=== PATIENT | female | born 1965 | race Caucasian/White ===

== ENCOUNTER → 2016-03-29 10:57 | Outpatient (CLI) | payer MEDICARE, MEDICAID ==
[2015-01-13 13:35] VITALS: BMI 35.5
[~2016-03-29 10:57] MED LIST: ADVAIR 100/501 DISK INH; AMBIEN10 MG PO; CLARINEX5 MG PO; CYMBALTA60 MG PO; FLAGYL500 MG PO; GLIMEPIRIDE4 MG PO; GLUCOPHAGE1000 MG PO; LEVAQUIN500 MG PO; LIPITOR20 MG PO; LISINOPRIL10 MG PO; MACRODANTIN100 MG PO; METOPROLOL TAR100 M1 PO; MIRALAX17 GM PO; NEURONTIN600 MG PO; PERCOCET 10/3251 TA1 PO; PHENERGAN25 M1 PO; PRILOSEC20 MG PO; PROAIR HFA8.5 GM INH; PROTONIX20 MG PO; REQUIP XL2 MG PO; SEROQUEL XR300 MG PO; SINGULAIR10 MG PO; VICTOZA0.6 MG/0.1 SQ; ZANAFLEX4 MG PO; ZOFRAN4 MG PO
== END | disposition home or self-care (01) ==
LOC: D.LAB 10:57
DX: R19.7 Diarrhea, unspecified (principal); R10.9 Unspecified abdominal pain

== ENCOUNTER 2016-11-06 23:40 | Emergency (ER) | payer MEDICARE ==
[2015-01-13 13:35] VITALS: BMI 35.5
[2016-11-06 23:51] LABS: APPEARANCE CLEAR (CLEAR); BILIRUBIN NEGATIVE (NEGATIVE); COLOR YELLOW (YELLOW); GLUCOSE 1000 mg/dL (NEGATIVE); KETONE NEGATIVE (NEGATIVE); LEUKOCYTE ESTERASE NEGATIVE (NEGATIVE); NITRITE NEGATIVE (NEGATIVE); PROTEIN NEGATIVE (NEGATIVE); UROBILINOGEN NORMAL (NORMAL)
[2016-11-07 00:02] LABS: BASOPHILS 0.2 % (0-2); EOSINOPHILS 1.1 % (0-7); HEMATOCRIT 38.6 % (36.0-48.0); HEMOGLOBIN 13.2 g/dL (12-16); IMMATURE GRANULOCYTES 0.2 % (0-5); MCH 28.6 pg (26.0-34.0); MCHC 34.2 g/dL (31.0-37.0); MCV 83.7 fL (80.0-100.0); MEAN PLATELET VOLUME 11.7 fL (7.4-10.4); MONOCYTES 8.2 % (2-11); NEUTROPHILS 55.3 % (40-80); PLATELET COUNT 166 10x3/uL (130-400); RBC 4.61 10x6/uL (4.00-5.40); RDW 12.9 % (11.5-14.5); WBC 11.1 10x3/uL (4.8-10.8)
[2016-11-07 00:18] LABS: ALBUMIN 3.3 g/dL (3.4-5.0); ALKALINE PHOSPHATASE 102 U/L (46-116); ALT (SGPT) 23 U/L (10-68); BILIRUBIN - TOTAL 0.28 mg/dL (0.2-1.3); CALC OSMOLALITY 282 mosm/kg (275-300); CALCIUM 9.3 mg/dL (8.5-10.1); CARBON DIOXIDE 26.7 mmol/L (21.0-32.0); CHLORIDE - SERUM 97 mmol/L (98-107); CREATININE - SERUM 0.8 mg/dL (0.6-1.3); POTASSIUM - SERUM 3.8 mmol/L (3.5-5.1); PROTEIN - SERUM 7.4 g/dL (6.4-8.2); SODIUM 132 mmol/L (136-145); UREA NITROGEN 12 mg/dL (7-18); eGFR NON AFRICAN AMERICAN 81 mL/min (90-120)
[2016-11-07 00:21] LABS: GLUCOSE 419 mg/dL (74-106)
[2016-11-07 00:33] LABS: KETONE - SERUM NEGATIVE (NEGATIVE)
[2016-11-07 00:45] LABS: AMYLASE - SERUM 21 U/L (25-115); LIPASE 100 U/L (73-393)
[2016-11-07 00:47] LABS: TROPONIN-I < 0.017 ng/mL (0.000-0.060)
== END 2016-11-07 02:35 | disposition home or self-care (01) ==
LOC: D.ER 23:40
PROVIDERS: Family Medicine
DX: K57.92 Diverticulitis of intestine, part unspecified, without perforation or abscess without bleeding (principal); E11.9 Type 2 diabetes mellitus without complications; Z79.4 Long term (current) use of insulin; I10 Essential (primary) hypertension

== ENCOUNTER 2017-09-09 02:38 | Inpatient (IN) | payer MEDICARE, MEDICAID ==
[~2017-09-09] VITALS: Ht 149.9 cm; Wt 84.4 kg
[2017-09-09] MEDS ORDERED: REGLAN5 MG (02:47)
[2017-09-09] MEDS ORDERED: APIDRA100 U/M1 SQ (02:48)
[2017-09-09] MEDS ORDERED: LANTUS INSULIN10 ML SC (02:50)
[2017-09-09 03:23] LABS: BASOPHILS 0.1 % (0-2); EOSINOPHILS 0.1 % (0-7); HEMATOCRIT 36.5 % (36.0-48.0); HEMOGLOBIN 12.5 g/dL (12-16); IMMATURE GRANULOCYTES 1.3 % (0-5); LYMPHOCYTES 23.4 % (15-50); MCH 28.7 pg (26.0-34.0); MCHC 34.2 g/dL (31.0-37.0); MCV 83.7 fL (80.0-100.0); MEAN PLATELET VOLUME 11.5 fL (7.4-10.4); MONOCYTES 5.7 % (2-11); NEUTROPHILS 69.4 % (40-80); RBC 4.36 10x6/uL (4.00-5.40); RDW 13.1 % (11.5-14.5); WBC 19.1 10x3/uL (4.8-10.8)
[2017-09-09 03:24] LABS: PLATELET COUNT 239 10x3/uL (130-400)
[2017-09-09 03:43] LABS: ALBUMIN 3.1 g/dL (3.4-5.0); ALKALINE PHOSPHATASE 64 U/L (46-116); ALT (SGPT) 16 U/L (10-68); BILIRUBIN - TOTAL 0.15 mg/dL (0.2-1.3); CALC OSMOLALITY 283 mosm/kg (275-300); CALCIUM 8.7 mg/dL (8.5-10.1); CARBON DIOXIDE 29.5 mmol/L (21.0-32.0); CHLORIDE - SERUM 99 mmol/L (98-107); CREATININE - SERUM 0.7 mg/dL (0.6-1.3); MAGNESIUM - SERUM 1.5 mg/dL (1.8-2.4); POTASSIUM - SERUM 4.6 mmol/L (3.5-5.1); PROTEIN - SERUM 6.1 g/dL (6.4-8.2); SODIUM 136 mmol/L (136-145); UREA NITROGEN 15 mg/dL (7-18); eGFR NON AFRICAN AMERICAN > 90 mL/min (90-120)
[2017-09-09 03:44] LABS: GLUCOSE 301 mg/dL (74-106)
[2017-09-09 07:57] LABS: HEMATOCRIT 37.2 % (36.0-48.0); HEMOGLOBIN 12.6 g/dL (12-16); MCH 28.5 pg (26.0-34.0); MCHC 33.9 g/dL (31.0-37.0); MCV 84.2 fL (80.0-100.0); MEAN PLATELET VOLUME 11.6 fL (7.4-10.4); PLATELET COUNT 213 10x3/uL (130-400); RBC 4.42 10x6/uL (4.00-5.40); RDW 13.3 % (11.5-14.5); WBC 22.3 10x3/uL (4.8-10.8)
[2017-09-09 08:28] VITALS: BP 131/74; BMI 37.6
[2017-09-09 08:44] LABS: LYMPHOCYTES 31 % (15-50); MONOCYTES 9 % (2-11); NEUTROPHILS 55 % (40-80); PLATELET ESTIMATE NORMAL; PLATELET MORPHOLOGY NORMAL PLT MORPH
[2017-09-09 08:45] LABS: HYPOCHROMASIA 1+; SMUDGE CELLS OCC
[2017-09-09 10:40] VITALS: Ht 149.9 cm; Wt 84.4 kg
[2017-09-09 12:47] VITALS: BP 136/79
[2017-09-09 15:05] LABS: APPEARANCE CLEAR (CLEAR); BILIRUBIN NEGATIVE (NEGATIVE); COLOR YELLOW (YELLOW); GLUCOSE 100 mg/dL (NEGATIVE); KETONE NEGATIVE (NEGATIVE); NITRITE NEGATIVE (NEGATIVE); PROTEIN NEGATIVE (NEGATIVE); UROBILINOGEN NORMAL (NORMAL)
[2017-09-09 15:58] VITALS: BP 144/77
[2017-09-09 20:02] VITALS: BP 149/66
[2017-09-10 05:00] VITALS: BP 123/69
[2017-09-10 06:40] LABS: BASOPHILS 0.1 % (0-2); EOSINOPHILS 0.2 % (0-7); HEMATOCRIT 35.3 % (36.0-48.0); HEMOGLOBIN 11.8 g/dL (12-16); IMMATURE GRANULOCYTES 1.1 % (0-5); LYMPHOCYTES 26.4 % (15-50); MCHC 33.4 g/dL (31.0-37.0); MCV 83.8 fL (80.0-100.0); MEAN PLATELET VOLUME 11.4 fL (7.4-10.4); MONOCYTES 8.3 % (2-11); NEUTROPHILS 63.9 % (40-80); PLATELET COUNT 211 10x3/uL (130-400); RBC 4.21 10x6/uL (4.00-5.40); RDW 13.4 % (11.5-14.5); WBC 17.6 10x3/uL (4.8-10.8)
[2017-09-10 07:45] LABS: ALKALINE PHOSPHATASE 52 U/L (46-116); ALT (SGPT) 18 U/L (10-68); BILIRUBIN - TOTAL 0.19 mg/dL (0.2-1.3); CALCIUM 8.7 mg/dL (8.5-10.1); CARBON DIOXIDE 28.9 mmol/L (21.0-32.0); CHLORIDE - SERUM 101 mmol/L (98-107); CREATININE - SERUM 0.7 mg/dL (0.6-1.3); GLUCOSE 289 mg/dL (74-106); POTASSIUM - SERUM 4.5 mmol/L (3.5-5.1); PROTEIN - SERUM 5.9 g/dL (6.4-8.2); SODIUM 133 mmol/L (136-145); eGFR NON AFRICAN AMERICAN > 90 mL/min (90-120)
[2017-09-10 07:56] LABS: CALC OSMOLALITY 275 mosm/kg (275-300); UREA NITROGEN 10 mg/dL (7-18)
[2017-09-10 08:49] VITALS: BP 113/83
[2017-09-10 16:57] VITALS: BP 149/87
[2017-09-10 20:30] VITALS: BP 151/77
[2017-09-11 04:30] VITALS: BP 113/63
[2017-09-11 05:01] LABS: BASOPHILS 0.1 % (0-2); EOSINOPHILS 0.1 % (0-7); HEMATOCRIT 33.9 % (36.0-48.0); HEMOGLOBIN 11.2 g/dL (12-16); IMMATURE GRANULOCYTES 0.8 % (0-5); LYMPHOCYTES 16.3 % (15-50); MCH 27.9 pg (26.0-34.0); MCV 84.3 fL (80.0-100.0); MEAN PLATELET VOLUME 11.6 fL (7.4-10.4); MONOCYTES 4.1 % (2-11); NEUTROPHILS 78.6 % (40-80); PLATELET COUNT 207 10x3/uL (130-400); RBC 4.02 10x6/uL (4.00-5.40); RDW 13.4 % (11.5-14.5); WBC 14.5 10x3/uL (4.8-10.8)
[2017-09-11 05:27] LABS: ALBUMIN 3.3 g/dL (3.4-5.0); ALKALINE PHOSPHATASE 53 U/L (46-116); ALT (SGPT) 20 U/L (10-68); BILIRUBIN - TOTAL 0.19 mg/dL (0.2-1.3); CALC OSMOLALITY 282 mosm/kg (275-300); CALCIUM 8.8 mg/dL (8.5-10.1); CARBON DIOXIDE 25.8 mmol/L (21.0-32.0); CHLORIDE - SERUM 99 mmol/L (98-107); CREATININE - SERUM 0.8 mg/dL (0.6-1.3); POTASSIUM - SERUM 4.3 mmol/L (3.5-5.1); PROTEIN - SERUM 5.9 g/dL (6.4-8.2); SODIUM 135 mmol/L (136-145); UREA NITROGEN 11 mg/dL (7-18); eGFR NON AFRICAN AMERICAN 80 mL/min (90-120)
[2017-09-11 05:30] LABS: GLUCOSE 346 mg/dL (74-106)
[2017-09-11 09:10] VITALS: BP 120/78
[2017-09-11 14:32] VITALS: BP 132/75
[2017-09-11 17:00] VITALS: BP 118/70
[2017-09-11 21:58] VITALS: BP 112/69
[2017-09-12 05:48] LABS: BASOPHILS 0.1 % (0-2); EOSINOPHILS 0.8 % (0-7); HEMATOCRIT 30.2 % (36.0-48.0); HEMOGLOBIN 10.1 g/dL (12-16); IMMATURE GRANULOCYTES 0.7 % (0-5); LYMPHOCYTES 32.9 % (15-50); MCH 27.9 pg (26.0-34.0); MCHC 33.4 g/dL (31.0-37.0); MCV 83.4 fL (80.0-100.0); MEAN PLATELET VOLUME 11.7 fL (7.4-10.4); MONOCYTES 7.2 % (2-11); NEUTROPHILS 58.3 % (40-80); PLATELET COUNT 206 10x3/uL (130-400); RBC 3.62 10x6/uL (4.00-5.40); RDW 13.6 % (11.5-14.5); WBC 12.6 10x3/uL (4.8-10.8)
[2017-09-12 06:27] LABS: ALBUMIN 2.7 g/dL (3.4-5.0); ALKALINE PHOSPHATASE 54 U/L (46-116); ALT (SGPT) 19 U/L (10-68); BILIRUBIN - TOTAL 0.18 mg/dL (0.2-1.3); CALC OSMOLALITY 284 mosm/kg (275-300); CALCIUM 8.5 mg/dL (8.5-10.1); CARBON DIOXIDE 30.3 mmol/L (21.0-32.0); CHLORIDE - SERUM 102 mmol/L (98-107); CREATININE - SERUM 0.6 mg/dL (0.6-1.3); GLUCOSE 322 mg/dL (74-106); POTASSIUM - SERUM 3.9 mmol/L (3.5-5.1); PROTEIN - SERUM 5.2 g/dL (6.4-8.2); SODIUM 136 mmol/L (136-145); UREA NITROGEN 16 mg/dL (7-18); eGFR NON AFRICAN AMERICAN > 90 mL/min (90-120)
[2017-09-12 06:35] VITALS: BP 127/64
[2017-09-12 09:12] VITALS: BP 167/102
[2017-09-12] MEDS ORDERED: GAS-X80 MG PO (10:56)
[2017-09-12] MEDS ORDERED: COLACE100 MG PO (10:56)
[2017-09-12] MEDS ORDERED: FLAGYL500 MG PO (10:56)
[2017-09-12] MEDS ORDERED: LEVAQUIN750 MG PO (10:57)
== END 2017-09-12 13:02 | disposition home or self-care (01) | DRG 379 ==
LOC: D.ER 02:38 → D.MS 04:26 → D.EDHOLD 04:26 → D.MS 05:21
PROVIDERS: Emergency Medicine; Family Medicine
DX: K57.33 Diverticulitis of large intestine without perforation or abscess with bleeding (principal); I10 Essential (primary) hypertension; D64.9 Anemia, unspecified; E83.42 Hypomagnesemia; E10.65 Type 1 diabetes mellitus with hyperglycemia; Z79.4 Long term (current) use of insulin; R79.89 Other specified abnormal findings of blood chemistry; K02.9 Dental caries, unspecified; F17.210 Nicotine dependence, cigarettes, uncomplicated

== ENCOUNTER 2017-09-13 18:55 | Inpatient (IN) | payer MEDICARE, MEDICAID ==
[~2017-09-13] VITALS: Ht 149.9 cm; Wt 84.5 kg
--- NOTE | ~2017-09-13 | MORECARE ---
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 [address] [place] [address] END OF REPORT
[~2017-09-13 18:55] MED LIST changes: +APIDRA100 U/M1 SQ; +COLACE100 MG PO; +GAS-X80 MG PO; +LANTUS INSULIN10 ML SC; +LEVAQUIN750 MG PO; +REGLAN5 MG
[2017-09-13 19:23] LABS: APPEARANCE CLEAR (CLEAR); BILIRUBIN NEGATIVE (NEGATIVE); COLOR YELLOW (YELLOW); GLUCOSE 1000 mg/dL (NEGATIVE); KETONE NEGATIVE (NEGATIVE); NITRITE NEGATIVE (NEGATIVE); PROTEIN NEGATIVE (NEGATIVE); SPECIFIC GRAVITY 1.015 (1.005-1.020); UROBILINOGEN NORMAL (NORMAL)
[2017-09-13 19:24] LABS: EPITHELIAL CELLS 0-5 /hpf (0-5); WHITE CELLS - URINE 0-5 /hpf (0-5)
[2017-09-13 19:25] LABS: BACTERIA FEW /hpf (NONE SEEN)
[2017-09-13 19:41] LABS: BASOPHILS 0.1 % (0-2); EOSINOPHILS 0.5 % (0-7); HEMATOCRIT 29.5 % (36.0-48.0); HEMOGLOBIN 9.8 g/dL (12-16); IMMATURE GRANULOCYTES 0.7 % (0-5); LYMPHOCYTES 31.6 % (15-50); MCH 28.2 pg (26.0-34.0); MCHC 33.2 g/dL (31.0-37.0); MCV 84.8 fL (80.0-100.0); MEAN PLATELET VOLUME 11.4 fL (7.4-10.4); MONOCYTES 8.5 % (2-11); NEUTROPHILS 58.6 % (40-80); PLATELET COUNT 216 10x3/uL (130-400); RBC 3.48 10x6/uL (4.00-5.40); RDW 14.4 % (11.5-14.5)
[2017-09-13 19:56] LABS: WBC 19.3 10x3/uL (4.8-10.8)
[2017-09-13 19:59] LABS: APTT 27.2 SECONDS (22.8-39.4); INR 0.92 (0.85-1.17)
[2017-09-13 20:11] LABS: ALKALINE PHOSPHATASE 64 U/L (46-116); ALT (SGPT) 16 U/L (10-68); AMYLASE - SERUM 34 U/L (25-115); BILIRUBIN - TOTAL 0.19 mg/dL (0.2-1.3); CALCIUM 8.4 mg/dL (8.5-10.1); CHLORIDE - SERUM 101 mmol/L (98-107); LIPASE 161 U/L (73-393); POTASSIUM - SERUM 3.8 mmol/L (3.5-5.1); PROTEIN - SERUM 5.6 g/dL (6.4-8.2); SODIUM 135 mmol/L (136-145); UREA NITROGEN 14 mg/dL (7-18); eGFR NON AFRICAN AMERICAN 80 mL/min (90-120)
[2017-09-13 20:16] LABS: CALC OSMOLALITY 278 mosm/kg (275-300); CREATININE - SERUM 0.8 mg/dL (0.6-1.3); GLUCOSE 248 mg/dL (74-106)
[2017-09-13 21:08] VITALS: BP 144/70
[2017-09-13 22:00] VITALS: BP 127/68
[2017-09-13 22:57] VITALS: BP 137/76
[2017-09-13 23:48] LABS: HEMATOCRIT 29.8 % (36.0-48.0)
[2017-09-14] VITALS (12 sets, daily range): BP systolic 125–165; BP diastolic 69–95; Ht 149.9 cm; Wt 84.5 kg
[2017-09-14 05:47] LABS: BASOPHILS 0.1 % (0-2); EOSINOPHILS 1.7 % (0-7); HEMATOCRIT 29.9 % (36.0-48.0); HEMOGLOBIN 9.7 g/dL (12-16); IMMATURE GRANULOCYTES 0.8 % (0-5); LYMPHOCYTES 49.2 % (15-50); MCH 27.6 pg (26.0-34.0); MCHC 32.4 g/dL (31.0-37.0); MCV 85.2 fL (80.0-100.0); MEAN PLATELET VOLUME 11.3 fL (7.4-10.4); MONOCYTES 7.9 % (2-11); NEUTROPHILS 40.3 % (40-80); PLATELET COUNT 211 10x3/uL (130-400); RBC 3.51 10x6/uL (4.00-5.40); RDW 14.6 % (11.5-14.5); WBC 15.5 10x3/uL (4.8-10.8)
[2017-09-14 06:32] LABS: ALBUMIN 2.8 g/dL (3.4-5.0); ALKALINE PHOSPHATASE 40 U/L (46-116); BILIRUBIN - TOTAL 0.22 mg/dL (0.2-1.3); CALCIUM 8.1 mg/dL (8.5-10.1); CARBON DIOXIDE 30.4 mmol/L (21.0-32.0); CHLORIDE - SERUM 103 mmol/L (98-107); CREATININE - SERUM 0.8 mg/dL (0.6-1.3); PROTEIN - SERUM 5.1 g/dL (6.4-8.2); SODIUM 140 mmol/L (136-145); eGFR NON AFRICAN AMERICAN 80 mL/min (90-120)
[2017-09-14 06:33] LABS: ALT (SGPT) 23 U/L (10-68); CALC OSMOLALITY 280 mosm/kg (275-300); GLUCOSE 101 mg/dL (74-106); UREA NITROGEN 19 mg/dL (7-18)
[2017-09-14 15:24] LABS: HEMATOCRIT 29.7 % (36.0-48.0); HEMOGLOBIN 9.8 g/dL (12-16)
[2017-09-15 00:22] VITALS: BP 154/80
[2017-09-15 04:59] LABS: BASOPHILS 0.1 % (0-2); HEMATOCRIT 31.9 % (36.0-48.0); HEMOGLOBIN 10.2 g/dL (12-16); IMMATURE GRANULOCYTES 0.8 % (0-5); LYMPHOCYTES 46.6 % (15-50); MCH 27.8 pg (26.0-34.0); MCV 86.9 fL (80.0-100.0); MEAN PLATELET VOLUME 10.9 fL (7.4-10.4); MONOCYTES 8.3 % (2-11); NEUTROPHILS 41.2 % (40-80); PLATELET COUNT 216 10x3/uL (130-400); RBC 3.67 10x6/uL (4.00-5.40); RDW 14.8 % (11.5-14.5)
[2017-09-15 05:07] LABS: WBC 9.6 10x3/uL (4.8-10.8)
[2017-09-15 05:10] LABS: CALCIUM 7.6 mg/dL (8.5-10.1); CHLORIDE - SERUM 104 mmol/L (98-107); CREATININE - SERUM 0.7 mg/dL (0.6-1.3); POTASSIUM - SERUM 3.9 mmol/L (3.5-5.1); SODIUM 138 mmol/L (136-145); eGFR NON AFRICAN AMERICAN > 90 mL/min (90-120)
[2017-09-15 05:12] LABS: CALC OSMOLALITY 283 mosm/kg (275-300); GLUCOSE 263 mg/dL (74-106); UREA NITROGEN 10 mg/dL (7-18)
[2017-09-15 06:13] VITALS: BP 114/57
[2017-09-15 08:34] VITALS: BP 129/80
[2017-09-15 12:40] VITALS: BP 131/67
[2017-09-15 16:51] VITALS: BP 156/78
[2017-09-15 20:52] VITALS: BP 151/68
[2017-09-16 00:30] VITALS: BP 151/72
[2017-09-16 04:45] LABS: BASOPHILS 0.1 % (0-2); EOSINOPHILS 2.6 % (0-7); HEMATOCRIT 32.8 % (36.0-48.0); HEMOGLOBIN 10.6 g/dL (12-16); IMMATURE GRANULOCYTES 0.8 % (0-5); LYMPHOCYTES 41.8 % (15-50); MCHC 32.3 g/dL (31.0-37.0); MCV 86.8 fL (80.0-100.0); MEAN PLATELET VOLUME 11.1 fL (7.4-10.4); MONOCYTES 9.6 % (2-11); NEUTROPHILS 45.1 % (40-80); PLATELET COUNT 214 10x3/uL (130-400); RBC 3.78 10x6/uL (4.00-5.40); RDW 14.7 % (11.5-14.5); WBC 8.8 10x3/uL (4.8-10.8)
[2017-09-16 05:00] LABS: CALC OSMOLALITY 283 mosm/kg (275-300); CALCIUM 7.9 mg/dL (8.5-10.1); CARBON DIOXIDE 30.4 mmol/L (21.0-32.0); CHLORIDE - SERUM 103 mmol/L (98-107); CREATININE - SERUM 0.7 mg/dL (0.6-1.3); GLUCOSE 254 mg/dL (74-106); POTASSIUM - SERUM 4.1 mmol/L (3.5-5.1); SODIUM 138 mmol/L (136-145); UREA NITROGEN 10 mg/dL (7-18); eGFR NON AFRICAN AMERICAN > 90 mL/min (90-120)
[2017-09-16 06:17] VITALS: BP 129/62
[2017-09-16 08:42] VITALS: BP 152/84
[2017-09-16 12:53] VITALS: BP 127/81
== END 2017-09-16 13:55 | disposition home or self-care (01) | DRG 378 ==
LOC: D.ER 18:55 → D.MS 23:23 → D.EDHOLD 23:23 → D.MS 09-14 11:58
PROVIDERS: Family Medicine; Internal Medicine Nephrology
DX: K57.33 Diverticulitis of large intestine without perforation or abscess with bleeding (principal); F17.203 Nicotine dependence unspecified, with withdrawal; D50.0 Iron deficiency anemia secondary to blood loss (chronic); E10.65 Type 1 diabetes mellitus with hyperglycemia; Z79.4 Long term (current) use of insulin; I10 Essential (primary) hypertension; K59.00 Constipation, unspecified

== ENCOUNTER → 2017-11-16 16:56 | Outpatient (CLI) | payer MEDICARE, MEDICAID ==
[2017-09-14 18:58] VITALS: BMI 37.6
== END | disposition home or self-care (01) ==
LOC: D.MAMMO 15:30
DX: Z12.31 Encounter for screening mammogram for malignant neoplasm of breast (principal)

== ENCOUNTER 2018-12-02 08:00 | Outpatient (CLI) | payer MEDICARE, MEDICAID ==
[2018-12-16 09:38] VITALS: BMI 37.6
== END 2018-12-02 08:01 | disposition home or self-care (01) ==
LOC: D.MAMMO 08:00
PROVIDERS: ATTEND Family Medicine
DX: Z12.31 Encounter for screening mammogram for malignant neoplasm of breast (principal)

== ENCOUNTER 2018-12-16 09:37 | Emergency (ER) | payer MEDICARE, MEDICAID ==
[~2018-12-16] VITALS: Ht 149.9 cm; Wt 84.5 kg
[2018-12-16 09:38] VITALS: Ht 149.9 cm; Wt 84.5 kg
[2018-12-16] MEDS ORDERED: RANITIDINE HCL150 M1 PO (09:42)
[2018-12-16] MEDS ORDERED: ABILIFY20 MG PO (09:42)
[2018-12-16] MEDS ORDERED: HYDROCODON-ACE1 EA10 PO (09:43)
[2018-12-16] MEDS ORDERED: CYCLOBENZAPRINE10 MG PO (10:48)
[2018-12-16] MEDS ORDERED: MEDROL DOSE PACK4 MG PO (10:48)
[2018-12-16 11:34] VITALS: BP 152/86
== END 2018-12-16 11:36 | disposition home or self-care (01) ==
LOC: D.ER 09:37
DX: M54.30 Sciatica, unspecified side (principal)

== ENCOUNTER 2019-02-22 05:08 | Day surgery (SDC) | payer MEDICARE, MEDICAID ==
[~2019-02-22] VITALS: Ht 149.9 cm; Wt 81.6 kg
--- NOTE | ~2019-02-22 | OP ---
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 POSTOPERATIVE DIAGNOSIS: Disc herniation L4-L5 with right L5 radiculitis/radiculopathy. PROCEDURES: Lumbar laminotomy, medial facetectomy, and foraminotomy at L4-L5 on the right with METRx retractor and discectomy L4-L5, right. SURGEON: Dr. Ko Neri DESCRIPTION OF THE TECHNIQUE: After induction of general endotracheal anesthesia, the patient was rolled prone on the [employer] frame. Lumbar spine was prepped and draped in the usual sterile fashion. Fluoroscopic x-ray and spinal needle localized at the L4-L5 interspace on the right side. The level was confirmed with fluoroscopic x-ray. After infiltration of 1 1:100,000 epinephrine and 1% lidocaine, a stab incision was created with a #11 blade and a series of dilators were used to advance a METRx retractor to the L4-L5 interspace on the right side. Level was confirmed with fluoroscopic x-ray. A microscope and Midas Blake drill were used to perform laminotomy, medial facetectomy and foraminotomy at L4-L5 on the right. Hypertrophied ligamentum flavum was removed with Cloward rongeurs. Following this, the L4 and L5 nerve roots were decompressed posteriorly. There was a disc protrusion within the axilla of the right L5 nerve root. This was removed with pituitary rongeurs and a #11 blade. Additional material was removed from the posterior one-third of the disc space. Following this, the L5 nerve root was completely decompressed. Meticulous hemostasis was maintained throughout the wound. Wound was irrigated with copious amounts of Ancef irrigant solution. The retractor was removed. The fascia was closed with 3-0 Vicryl suture, the subdermal layer was closed with 3-0 Vicryl suture. Skin was closed with sayda. A sterile dressing was applied to the wound. The patient was awakened in good condition and taken to the recovery. All counts were reported as correct. Estimated blood loss was minimal. TRANSINT:[id number] Voice Confirmation ID: [id number] DOCUMENT ID: [id number] KO NERI MD CC: [id number] DICTATION DATE: 03/15/19 1002 SANDING MACHINE TENDER: 03/15/19 1031 [facility] [place] 02/22/19 [place] [id number]
[~2019-02-22 05:08] MED LIST changes: +ABILIFY20 MG PO; +ATIVAN1 MG PO; +CYCLOBENZAPRINE10 MG PO; +HYDROCODON-ACE1 EA10 PO; +MEDROL DOSE PACK4 MG PO; +RANITIDINE HCL150 M1 PO; -REGLAN5 MG; +REGLAN5 MG PO
[2019-02-22 05:37] LABS: HEMOGLOBIN 15.4 g/dL (12-16); MCH 29.3 pg (26.0-34.0); MCHC 34.2 g/dL (31.0-37.0); MCV 85.6 fL (80.0-100.0); MEAN PLATELET VOLUME 11.6 fL (7.4-10.4); RBC 5.26 10x6/uL (4.00-5.40); RDW 13.8 % (11.5-14.5); WBC 9.7 10x3/uL (4.8-10.8)
[2019-02-22 05:56] LABS: CALC OSMOLALITY 286 mosm/kg (275-300); CALCIUM 9.5 mg/dL (8.5-10.1); CARBON DIOXIDE 28.1 mmol/L (21.0-32.0); CHLORIDE - SERUM 99 mmol/L (98-107); CREATININE - SERUM 0.7 mg/dL (0.6-1.3); POTASSIUM - SERUM 4.6 mmol/L (3.5-5.1); SODIUM 136 mmol/L (136-145); UREA NITROGEN 13 mg/dL (7-18); eGFR NON AFRICAN AMERICAN > 90 mL/min (90-120)
[2019-02-22 05:58] LABS: GLUCOSE 366 mg/dL (74-106)
[2019-02-22 06:52] VITALS: BP 148/80; Ht 149.9 cm; Wt 81.6 kg
--- NOTE | 2019-02-22 08:44 | NUR ---
0630-DR. AHUMADA NOTIFIED VIA PHONE OF PRE-OP BLOOD SUGAR, NEED FOR ANTIBIOTIC CHOICE MADE AND PATIENT WITH PERSONAL CRISIS WITH OF SON 3 WEEKS AGO.
[2019-02-22] MEDS ORDERED: HYDROCODON-ACE1 EA10 PO (09:31)
--- NOTE | 2019-02-22 09:53 | NUR ---
0948 PATIENT AROUSABLE, HOLDING HEAD OFF OF STRETCHER > 10 SECONDS. OPA DISCONTINUED
--- NOTE | 2019-02-22 12:38 | NUR ---
1115 PT HAS A PAIN LEVEL OF 4 OUT OF 10 BUT DOES NOT WANT ANY PAIN MEDICATION. STATES SHE WOULD RATHER WAIT UNTIL SHE GOT HOME TO TAKE PAIN MED. 1135 IV DC'D. CATHETER TIP INTACT. NO BLEEDING AT SITE. BANDAID APPLIED.
== END 2019-02-22 11:46 | disposition home or self-care (01) ==
LOC: D.OPS 05:08 → D.PAN 07:30 → D.OPS 11:46
PROVIDERS: Anesthesiology; ATTEND Neurological Surgery
DX: M51.16 Intervertebral disc disorders with radiculopathy, lumbar region (principal); M53.80 Other specified dorsopathies, site unspecified; E78.5 Hyperlipidemia, unspecified; I10 Essential (primary) hypertension; J44.9 Chronic obstructive pulmonary disease, unspecified; M54.9 Dorsalgia, unspecified; E11.9 Type 2 diabetes mellitus without complications

== ENCOUNTER 2019-04-28 16:17 | Emergency (ER) | payer MEDICARE, MEDICAID ==
[~2019-04-28] VITALS: Ht 149.9 cm; Wt 84.5 kg
[2019-04-28 16:26] VITALS: Ht 149.9 cm; Wt 84.5 kg
[2019-04-28 18:40] LABS: BASOPHILS 0.3 % (0-2); EOSINOPHILS 1.4 % (0-7); HEMATOCRIT 43.2 % (36.0-48.0); HEMOGLOBIN 14.6 g/dL (12-16); IMMATURE GRANULOCYTES 0.3 % (0-5); LYMPHOCYTES 34.1 % (15-50); MCH 29.7 pg (26.0-34.0); MCHC 33.8 g/dL (31.0-37.0); MCV 87.8 fL (80.0-100.0); MEAN PLATELET VOLUME 11.1 fL (7.4-10.4); MONOCYTES 7.8 % (2-11); NEUTROPHILS 56.1 % (40-80); PLATELET COUNT 203 10x3/uL (130-400); RBC 4.92 10x6/uL (4.00-5.40); RDW 12.3 % (11.5-14.5); WBC 9.9 10x3/uL (4.8-10.8)
[2019-04-28 18:56] LABS: CALC OSMOLALITY 288 mosm/kg (275-300); CALCIUM 9.3 mg/dL (8.5-10.1); CARBON DIOXIDE 30.1 mmol/L (21.0-32.0); CHLORIDE - SERUM 102 mmol/L (98-107); CREATININE - SERUM 0.6 mg/dL (0.6-1.3); POTASSIUM - SERUM 3.9 mmol/L (3.5-5.1); SODIUM 139 mmol/L (136-145); UREA NITROGEN 17 mg/dL (7-18); eGFR NON AFRICAN AMERICAN > 90 mL/min (90-120)
[2019-04-28 18:57] LABS: GLUCOSE 264 mg/dL (74-106)
[2019-04-28 19:10] LABS: APTT 42.3 SECONDS (22.8-39.4); INR 0.85 (0.85-1.17); PROTIME 11.6 SECONDS (11.6-15.0)
[2019-04-28 19:13] LABS: ALBUMIN 3.6 g/dL (3.4-5.0); ALKALINE PHOSPHATASE 87 U/L (30-120); ALT (SGPT) 28 U/L (10-68); BILIRUBIN - TOTAL 0.22 mg/dL (0.2-1.3); CKMB 2.4 U/L (0.0-3.6); CREATINE KINASE 106 UL (21-215); MAGNESIUM - SERUM 1.3 mg/dL (1.8-2.4)
[2019-04-28 19:28] LABS: TROPONIN-I < 0.017 ng/mL (0.000-0.060)
[2019-04-28 21:01] VITALS: BP 163/84
== END 2019-04-28 21:01 | disposition home or self-care (01) ==
LOC: D.ER 16:17
PROVIDERS: Family Medicine
DX: I10 Essential (primary) hypertension (principal); F41.9 Anxiety disorder, unspecified; E11.9 Type 2 diabetes mellitus without complications; Z79.84 Long term (current) use of oral hypoglycemic drugs; J44.9 Chronic obstructive pulmonary disease, unspecified; M54.9 Dorsalgia, unspecified